=== PATIENT | male | born 1990 | race Caucasian/White ===

== ENCOUNTER 2021-05-20 05:38 | Emergency (ER) | payer BC, SELFPAY ==
[2021-05-20] MEDS: LORazepam INJ (*CRX) 2 MG/ML VIAL 0.5 MG IV PUSH (05:48)
[2021-05-20 05:56] VITALS: BP 125/85; PULSE 105; RESP 21; TEMP 36.6; O2SAT 100
--- NOTE | 2021-05-20 05:56 | ED.ALLEREA ---
HPI - Allergic Reaction General Chief complaint: Anxiety Stated complaint: ALLERGIC REACTION Source: patient and EMS Mode of arrival: EMS Limitations: no limitations History of Present Illness HPI narrative: 30-year-old male brought in by EMS secondary to allergic reaction. He picked it up at his aunts house. He states he woke up and he felt like he was having some difficulty in breathing. Noted to have some swelling to his lips. Patient has underlying history of anxiety as well as psychiatric disorder. He recently got an injection for his psychiatric disorder. However it sounds like he has had these injections in the past. Not taking any new medications. EMS gave him Benadryl as well as subcu epinephrine prior to arrival. His vital signs of remained stable. Review of Systems Review of Systems: CONSTITUTIONAL: Denies fever, chills, or sweats. EYES: Denies visual changes, redness, or discharge. ENT: Denies rhinorrhea, congestion, sore throat, or otalgia. CARDIOVASCULAR: Denies chest pain, palpitations, or edema. RESPIRATORY: Denies cough or dyspnea. GASTROINTESTINAL: Denies abdominal pain, nausea, vomiting, or diarrhea. GENITOURINARY: Denies dysuria or hematuria. SKIN: Denies rash or itching. MUSCULOSKELETAL: Denies back pain, joint pain, or myalgia. NEUROLOGIC: Denies headache, numbness, or weakness. PSYCHIATRIC: History of psychiatric disorder as well as anxiety Exam Narrative: APPEARANCE: Well appearing, no pain or distress, well-nourished. Head normocephalic and atraumatic. EYES: PERRLA/EOMI, conjunctivae very clear. NOSE: Normal with no drainage EARS:TMS clear [place], with good light reflex. THROAT: Pharynx clear, no exudate. Swelling noted to the lower lip. There is no swelling to the tongue. He is able to speak with any difficulty. NECK: Supple. No adenopathy, no masses. RESPIRATORY: Airway patent, respirations nonlabored. Clear to auscultation bilaterally, no rales, rhonchi, wheezing. CARDIOVASCULAR: Regular rate and rhythm without murmurs, rubs, or gallops. ABDOMINAL: Soft, nontender, nondistended, no hepatosplenomegaly Musculoskeletal: Moves all extremities. Strength/ROM intact, No edema, No calf tenderness. NEURO: Alert. Cranial nerves II through XII intact. Normal gait. Good coordination. Nonfocal examination. SKIN:: Warm, dry. Normal Color PSYCHIATRIC: Extremely anxious Course Vital Signs Vital signs: Vital Signs Temperature 97.8 F 05/20/21 05:56 Pulse Rate 105 H 05/20/21 05:56 Respiratory Rate 21 H 05/20/21 05:56 Blood Pressure 125/85 05/20/21 05:56 Pulse Oximetry 100 05/20/21 05:56 Temperature 97.8 F 05/20/21 05:56 Pulse Rate 105 H 05/20/21 05:56 Respiratory Rate 21 H 05/20/21 05:56 Blood Pressure 125/85 05/20/21 05:56 Pulse Oximetry 100 05/20/21 05:56 MDM - Allergic Reaction MDM Narrative Medical decision making narrative: Patient extremely anxious subsequently given Ativan 0.5 mg IV which did seem to calm him down. Patient has had no progression and still does have some minimal swelling to the lower lip. No difficulty swallowing. Matter fact he is asking for something to eat and drink. He was able to eat and drink without any difficulty. Patient will be discharged home care at this time Differential Diagnosis Differential diagnosis: Likely anaphylaxis, allergic reaction and angioedema Discharge Plan Discharge Clinical Impression: Angioedema, Acute anxiety Patient Disposition: Home, Self-Care Condition: Improved Instructions: Angioedema (ED), Anxiety (ED) Additional Instructions: Continue current medication. Return if worse. Follow-up/Referrals: PHYSICIAN,COUNTER INSTALLER [Primary Care Provider] - Time of Disposition: 06:29
[2021-05-20 06:43] VITALS: BP 140/68; PULSE 100; RESP 20; O2SAT 98
== END 2021-05-20 06:49 | disposition home or self-care (01) ==
PROVIDERS: Emergency Provider Emergency Medicine
DX: T78.3XXA Angioneurotic edema, initial encounter (principal); F41.9 Anxiety disorder, unspecified; F99 Mental disorder, not otherwise specified
CPT/HCPCS: 96374; 99284; J2060

== ENCOUNTER 2021-05-20 07:00 | Emergency (ER) | payer BC, SELFPAY ==
[2021-05-20 07:10] VITALS: BP 126/81; PULSE 99; RESP 14; TEMP 36.4; O2SAT 100
[2021-05-20 07:44] LABS: Basophils Absolute Auto 0.1 K/mm3 (0.0-0.1); Basophils Percent Auto 1.1 % (0.2-1.2); Eosinophils Absolute Auto 0.1 K/mm3 (0-0.3); Eosinophils Percent Auto 1.7 % (0-4.4); Hematocrit 37.3 % (42.0-52.0); Immature Granulocyte Absolute 0.02 K/mm3 (0.00-0.031); Immature Granulocyte Percent A 0.3 % (0-0.5); Lymphocytes Absolute Auto 1.58 K/mm3 (0.9-3.2); Lymphocytes Percent Auto 20.9 % (18.3-44.2); Mean Corpuscular HGB Conc 34.9 g/dl (32-36); Mean Corpuscular Hemoglobin 35.4 pg (26-34); Mean Corpuscular Volume 101.6 fl (80-100); Mean Platelet Volume 9.7 fl (7.4-10.4); Monocytes Absolute Auto 0.7 K/mm3 (0.1-0.6); Monocytes Percent Auto 9.7 % (2.6-8.5); Neutrophils Percent Auto 66.3 % (45.5-73.1); Platelet Count Result 219 k/mm3 (150-375); Red Blood Count 3.67 M/mm3 (4.6-6.20); Red Cell Distribution Width 12.5 % (11.5-14.5); White Blood Count 7.6 K/mm3 (4.5-10.0)
[2021-05-20 07:54] LABS: Ethanol < 10 mg/dL (<10)
[2021-05-20 07:55] LABS: Alanine Aminotransferase 14 U/L (4-50); Albumin Level 4.8 g/dL (3.5-5.1); Alkaline Phosphatase 76 U/L (38-126); Anion Gap 10 mmol/L (8-16); Aspartate Amino Transferase 28 U/L (17-59); Bilirubin,Total 0.3 mg/dL (0.2-1.3); Blood Urea Nitrogen 14 mg/dL (9-20); Calcium 8.9 mg/dL (8.4-10.2); Carbon Dioxide 23 mmol/L (22-30); Chloride 105 mmol/L (98-107); Estimated CRCL calculation 110 ml/min; Estimated Glomerular Filt Rate > 60; Glucose 98 mg/dL (65-110); Potassium 3.9 mmol/L (3.4-5.0); Sodium 138 mmol/L (137-145)
--- NOTE | 2021-05-20 07:58 | ED.PSYCH ---
HPI - Psych General Chief Complaint: Psychiatric Symptoms Stated Complaint: psych Time Seen by Provider: 05/20/21 07:14 Source: patient and RN notes reviewed Mode of arrival: ambulatory Limitations: no limitations History of Present Illness HPI Narrative: This is a 30 year old male with history anxiety and schizophrenia who presents for psych evaluation. Patient states he moved to [place] from [place] a few months ago. He was evaluated in ER 1 hour ago for lip swelling. He was prescribed risperdal yesterday and he took dose. He thinks he had lip swelling from taking risperdal. He was evaluated in ER and he was cleared for discharge. Nurse staff reports patient was unable to find a ride so he signed back in stating he wanted to be admitted to psych floor. Triage reported patient denied SI/HI. Patient states he needs help with his anxiety. He states he is hearing voicing tell him he is a bad person. He states he is having suicidal thoughts today but he does not have a plan. He denies homicidal thoughts. Related Data Home Medications Medication Instructions Recorded Confirmed No Home Medications 05/20/21 Allergies Allergy/AdvReac Type Severity Reaction Status Date / Time No Known Allergies Allergy Verified 05/20/21 07:10 Review of Systems Review of Systems: All systems reviewed & are unremarkable except as noted in HPI and below Constitutional: Constitutional: Denies chills and Denies fever(s) ENT: Denies sore throat Cardiovascular: Cardiovascular: Denies chest pain and Denies radiating jaw, neck or arm pain Respiratory: Respiratory: Denies cough and Denies dyspnea Gastrointestinal: Gastrointestinal: Denies abdominal pain, Denies nausea and Denies vomiting Psychiatric: Psychiatric: Reports anxiety and Denies homicidal ideation [facility] Past Medical History Medical History (Updated 05/20/21 @ 11:16 by Maggie Chou MD) Anxiety Schizophrenia Surgical History Surgical History (Updated 05/20/21 @ 08:08 by Maggie Chou MD) No pertinent past surgical history Exam Const: General: no acute distress and alert Orientation/consciousness: patient oriented x3 HENMT: Head: normocephalic and atraumatic Mouth: Yes Normal oral and palatal mucosa present, Yes lip normal, Yes tongue normal, Yes oropharynx normal and Yes moist mucous membranes Eyes: EOM: EOMs intact bilaterally Resp: Effort & Inspection: normal respiratory effort and no retractions Auscultation: clear to auscultation bilaterally Cardio: Rate: regular rate Rhythm: regular rhythm Heart sounds: no murmurs GI: GI Palp: Yes Soft to palpation, No Tenderness to palpation present (GI) and No Guarding due to palpation present (GI) Auscultation: normal bowel sounds Skin: General skin exam: normal color Rashes: no rashes Neuro: General: patient oriented x3, moves all extremities and CN's II-XI intact bilaterally Psych: Appearance: well kempt Other: anxious Course Reevaluation(s) Reevaluation #1: Patient was assessed by Crisis. Patient denies having SI/HI to them. She states he reported no suicidal thoughts in month. She states patient does not meet criteria for inpatient psych. They have placed patient on list for Crisis Unit and he was given follow up and resources. Date: 05/20/21 Time: 11:13 Vital Signs Vital signs: Vital Signs Temperature 97.6 F 05/20/21 07:10 Pulse Rate 99 05/20/21 07:10 Respiratory Rate 14 05/20/21 07:10 Blood Pressure 126/81 05/20/21 07:10 Pulse Oximetry 100 05/20/21 07:10 Temperature 97.6 F 05/20/21 07:10 Pulse Rate 84 05/20/21 10:34 Respiratory Rate 16 05/20/21 10:34 Blood Pressure 132/76 05/20/21 10:34 Pulse Oximetry 99 05/20/21 10:34 MDM - Psych Medical Records Attestation: I reviewed the patient's medical records. Lab Data Attestation: I reviewed the patient's lab results. Result diagrams: 05/20/21 07:37 05/20/21 07:3
[2021-05-20 08:22] LABS: SARS-CoV-2 RNA PCR Negative
[2021-05-20 08:26] LABS: Appearance Urine Clear (Clear); Bilirubin Urine Negative (Negative); Blood Urine Negative (Negative); Color Urine Yellow (Yellow); Glucose Urine UA Negative (Negative); Ketones Urine Negative (Negative); Leukocyte Esterase Ur Negative LEU/UL (Negative); Nitrate Urine Negative (Negative); Protein Urine Negative (Negative); Specific Grav Ur 1.015 (1.001-1.035); Urobilinogen Urine 0.2 mg/dL (<2.0); pH Urine 6.5 (5.0-9.0)
[2021-05-20 08:27] LABS: Add Urine Microscopic? NO
[2021-05-20 08:35] LABS: Amphetamine Screen Urine Negative (Negative); Barbiturate Screen Urine Negative (Negative); Benzodiazepines Screen Urine Negative (Negative); Cannabinoid Screen Urine Negative (Negative); Cocaine Screen Urine Negative (Negative); Methadone Screen Urine Negative (Negative); Opiate Screen Urine Negative (Negative); Phencyclidine Screen Urine Negative (Negative)
[2021-05-20 10:34] VITALS: BP 132/76; PULSE 84; RESP 16; O2SAT 99
--- NOTE | 2021-05-20 11:13 | PCCCNOTE ---
Terry SHRESTHA from ED called requested transportation assistance for pt who has no ride back to home. Per EMS report home is at [address] [facility]; cab voucher provided to charge nurse. Pt did not have phone number for Aunt who he lives with but stated she is home and does not work. mother phone number [phone] but no answer when called
== END 2021-05-20 11:25 | disposition home or self-care (01) ==
PROVIDERS: Emergency Provider General Practice
DX: F41.9 Anxiety disorder, unspecified (principal); F20.9 Schizophrenia, unspecified; Z20.822 Contact with and (suspected) exposure to COVID-19
CPT/HCPCS: 36415; 80053; 80307; 81003; 84443; 85025; 96374; 99283; 99284; C9803; J2060; U0003; U0005